=== PATIENT | male | born 1965 | race Caucasian/White ===

== ENCOUNTER 2017-01-26 06:24 | Day surgery (SDC) | payer BC ==
[2017-01-26] MEDS ORDERED: Sodium Chloride 0.9% 1,000 ML IV SCH (06:30)
[2017-01-26] MEDS ORDERED: Midazolam 1 MG/ML 2 ML SDV ONE (07:46)
[2017-01-26] MEDS ORDERED: Propofol 200 MG/20 ML SDV ONE (07:46)
[2017-01-26] MEDS ORDERED: fentaNYL 100 MCG/2 ML SDV ONE (07:46)
[2017-01-26 09:07] VITALS: BP 122/68
--- NOTE | 2017-01-26 14:52 | OR ---
DATE OF PROCEDURE: 01/26/2017 PROCEDURE PERFORMED: Colonoscopy. FINDINGS: 1. Normal colonoscopy. 2. Poor colon prep. COMPLICATIONS: None. WRAPPING MACHINE HELPER: None. ANESTHESIA: MAC. PREOPERATIVE DIAGNOSIS: Screening colonoscopy. POSTOPERATIVE DIAGNOSIS: Screening colonoscopy. PROCEDURE IN DETAIL: The patient was placed in left lateral decubitus position. Digital rectal exam was performed without abnormality. The scope was introduced and advanced atraumatically to the ileocecal valve. The scope was brought back to the ascending, transverse, and descending colon and retroflexed. No old or new blood. No diverticulosis. No polyps. The prep was moderately acceptable due to retained solid and liquid stool. However, greater than 90% of the luminal surface could be seen making it a complete colonoscopy. The patient tolerated the procedure well. Arthur Alexander MD /[id number]
== END 2017-01-26 09:20 | disposition home or self-care (01) ==
LOC: JP.SDS 06:24
PROVIDERS: ATTEND Surgery
PROC: 0DJD8ZZ Inspection of Lower Intestinal Tract, Via Natural or Artificial Opening Endoscopic (ICD-10-PCS; principal; 2017-01-26)
DX: Z12.11 Encounter for screening for malignant neoplasm of colon (principal)
CPT/HCPCS: 45378; J2250; J2704; J3010; J7040